=== PATIENT | male | born 1955 | race Caucasian/White ===

== ENCOUNTER 2016-05-03 05:21 | Day surgery (SDC) | payer BC ==
--- NOTE | ~2016-05-03 | EGD ---
EGD REPORT [facility] [address] [address] NAME: DANY PRATT : 55 STATUS : REG [facility] [place] PAT#: [id number] AGE: 60 ADM/REG DATE : 05/03/16 MR#: [id number] REPORT SERV DATE: 05/03/16 DICTATED BY: JUAN MIGUEL ARMAS DATE: 05/03/16 REPORT STATUS : Draft TRANSCRIBED BY: [employer] DATE: 05/03/16 [facility] Patient Name: Dany Pratt Date of : 1955 Attending MD: JUAN MIGUEL ARMAS MD Procedure Date No Time: 05/03/2016 Procedure: Upper GI endoscopy Indications: Surveillance procedure, Follow-up of Moon's esophagus Referring MD: MAURICIO BERNSTEIN Medicines: Propofol per Anesthesia Complications: No immediate complications. Procedure: Pre-Anesthesia Assessment: - ASA Grade Assessment: III - A patient with severe systemic disease. After obtaining informed consent, the endoscope was passed under direct vision. Throughout the procedure, the patient's blood pressure, pulse, and oxygen saturations were monitored continuously. The GIF [id number] was introduced through the mouth, and advanced to the second part of duodenum. The upper GI endoscopy was accomplished without difficulty. The patient tolerated the procedure well. Findings: There were esophageal mucosal changes suspicious for short-segment Moon's esophagus present at the gastroesophageal junction. The maximum longitudinal extent of these mucosal changes was 1 cm in length. Mucosa was biopsied with a cold forceps for histology in the esophagus. Diffuse mild inflammation characterized by erosions and erythema was found in the stomach. The examined duodenum was normal. 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 Biopsied. - Chronic gastritis. - Normal examined duodenum. Recommendation: - Return to nurse practitioner in 3 weeks. Repeat sweet endoscopy in three years. Procedure Code(s): --- Professional --- 64642, Esophagogastroduodenoscopy, flexible, transoral; with biopsy, single or multiple Diagnosis Code(s): --- Professional --- EGD REPORT [address] [place]. [address] NAME: DANY PRATT : 55 STATUS : REG [facility] [place] PAT#: [id number] AGE: 60 ADM/REG DATE : 05/03/16 MR#: [id number] REPORT SERV DATE: 05/03/16 DICTATED BY: JUAN MIGUEL ARMAS. DATE: 05/03/16 REPORT STATUS : Draft TRANSCRIBED BY: [employer] DATE: 05/03/16 K22.70, Moon's esophagus without dysplasia K29.50, Unspecified chronic gastritis without bleeding CPT copyright 2013 [employer]. All rights reserved. The codes documented in this report are preliminary and upon shock absorber installer review may be revised to meet current compliance requirements. Juan Miguel Armas MD JUAN MIGUEL ARMAS MD 05/03/2016 7:12 AM This report has been signed electronically. Number of Addenda: 0 Note Initiated On: 05/03/2016 6:55 AM Scope Withdrawal Time 0 hours 0 minutes [address] [place] [address] [place] [address]
[~2016-05-03 05:21] MED LIST: ACTOS30 PO; ACTOS45 PO; ALTACE10 MG PO; ASAB PO; COREG6 PO; CRESTOR20 MG PO; CRESTOR40 MG PO; FISH OIL1200 MG PO; FLOMAX4 PO; HYDROCHLOROT12.5 MG PO; LOPID6 PO; NORV5 PO; PLAVIX PO; PREV30 PO; PROTONIX PO
[2016-07-04] MEDS ORDERED: VESICARE5 PO (13:11)
[2016-07-07] MEDS ORDERED: BETAPACE80 (12:45)
[2016-07-07] MEDS ORDERED: ELIQUIS 5 MG TAB5 MG PO (12:46)
[2016-07-07] MEDS ORDERED: CEFT5 PO (12:47)
== END 2016-05-03 23:59 | disposition home or self-care (01) ==
LOC: DMU 05:21
PROVIDERS: Internal Medicine Gastroenterology
PROC: 0DB58ZX Excision of Esophagus, Via Natural or Artificial Opening Endoscopic, Diagnostic (ICD-10-PCS; principal; 2016-05-03 07:00)
DX: K20.9 Esophagitis, unspecified (principal); K21.9 Gastro-esophageal reflux disease without esophagitis; E66.01 Morbid (severe) obesity due to excess calories; I10 Essential (primary) hypertension; E78.00 Pure hypercholesterolemia, unspecified; I25.10 Atherosclerotic heart disease of native coronary artery without angina pectoris; H91.90 Unspecified hearing loss, unspecified ear; Z79.82 Long term (current) use of aspirin; Z79.899 Other long term (current) drug therapy; Z68.39 Body mass index [BMI] 39.0-39.9, adult; Z98.890 Other specified postprocedural states; Z98.1 Arthrodesis status; Z87.442 Personal history of urinary calculi
CPT/HCPCS: 82962; 88305